=== PATIENT | male | born 1975 | race African-American/Black ===

== ENCOUNTER 2018-01-18 10:51 | Emergency (ER) | payer BC ==
[~2018-01-18] VITALS: Ht 182.9 cm; Wt 118.0 kg
[2018-01-18] MEDS ORDERED: KETOROLAC 60MG/2ML VIAL IM ONE (11:45)
[2018-01-18] MEDS ORDERED: CYCLOBENZAPRINE 10MG TABLET PO ONE (11:45)
[2018-01-18] MEDS ORDERED: CLONIDINE 0.1MG TABLET PO ONE (12:15)
[2018-01-18 12:57] VITALS: BP 181/115
== END 2018-01-18 12:55 | disposition home or self-care (01) ==
LOC: ER 10:51
DX: S39.012A Strain of muscle, fascia and tendon of lower back, initial encounter (principal); I10 Essential (primary) hypertension; X58.XXXA Exposure to other specified factors, initial encounter; Y93.89 Activity, other specified; Y92.89 Other specified places as the place of occurrence of the external cause; Y99.8 Other external cause status
CPT/HCPCS: 96372; 99283